=== PATIENT | male | born 1965 | race African-American/Black ===

== ENCOUNTER 2024-08-23 14:52 | Inpatient (IN) | payer OTHER ==
[2024-08-23 14:59] VITALS: BMI 28.1
[2024-08-23] MEDS ORDERED: dilTIAZem HCL 125 MG/25 ML - 25 ML VIAL ONE (15:27)
[2024-08-23] MEDS: dilTIAZem HCL 50 MG/10 ML - 10 ML VIAL IVPUSH ONE ×2 (15:30→15:46)
[2024-08-23] MEDS ORDERED: dilTIAZem HCL 60 MG TABLET ONE (15:40)
[2024-08-23] MEDS: dilTIAZem HCL 60 MG TABLET PO ONE (15:43)
[2024-08-23] MEDS: SODIUM CHLORIDE 0.9% 500 ML INFUS.BAG IV ONE (15:47)
[2024-08-23 15:58] LABS: POTASSIUM 4.2 mmol/L (3.5-5.1)
[2024-08-23 15:59] LABS: CALCIUM 9.8 mg/dL (8.5-10.1)
[2024-08-23 16:00] LABS: ALBUMIN 3.8 g/dl (3.4-5.0); BLOOD UREA NITROGEN 16.8 mg/dL (7-18); MAGNESIUM 2.3 mg/dL (1.8-2.4)
[2024-08-23 16:02] LABS: BASO % 0.7 % (0-2.0); EOS % 1.1 % (0-4.5); LYMPH % 37.1 % (8-40); MEAN PLT VOLUME 8.8 fl (7.5-11.1); MONO % 8.8 % (3.8-10.2); NEUT % 52.3 % (42.8-82.8); RBC 6.64 M/mm3 (4.00-5.60); WHITE BLOOD COUNT 10.3 K/mm3 (4.0-10.0)
[2024-08-23 16:03] LABS: CREATININE 1.2 mg/dL (0.55-1.3); HEMATOCRIT 48.4 % (35.4-49); HEMOGLOBIN 14.5 GM/dL (11.7-16.9); MEAN CELL VOLUME 73.8 fl (80-96)
[2024-08-23 16:04] LABS: MCH 22.1 pg (25.7-33.7); PLATELET COUNT 346 10^3/uL (134-434); RDW 15.7 % (11.9-15.9)
[2024-08-23 16:05] LABS: BILIRUBIN,TOTAL 0.6 mg/dL (0.2-1); TOT PROT 8.5 g/dl (6.4-8.2)
[2024-08-23] MEDS ORDERED: metoPROLOL SUCCINATE 25 MG TAB.SR.24H (FP) PO ONE (18:27)
[2024-08-23] MEDS: metoPROLOL SUCCINATE 25 MG TAB.SR.24H (FP) PO SCH (18:29)
[2024-08-23 18:52] LABS: INR 1.06 (0.83-1.09); PROTHROMBIN TIME (PATIENT) 12.2 SEC (9.7-13.0)
[2024-08-23] MEDS: ACETAMINOPHEN 500 MG TABLET (FP) PO ONE (21:29)
[2024-08-23] MEDS: SACUBITRIL/VALSARTAN 24 MG-26 MG TABLET PO SCH (21:29)
[2024-08-24 08:33] LABS: BASO % 0.6 % (0-2.0); EOS % 1.7 % (0-4.5); HEMATOCRIT 48.3 % (35.4-49); HEMOGLOBIN 14.7 GM/dL (11.7-16.9); LYMPH % 40.2 % (8-40); MCH 22.5 pg (25.7-33.7); MCHC 30.5 g/dl (32.0-35.9); MEAN CELL VOLUME 73.8 fl (80-96); MEAN PLT VOLUME 9.1 fl (7.5-11.1); MONO % 8.8 % (3.8-10.2); NEUT % 48.7 % (42.8-82.8); PLATELET COUNT 317 10^3/uL (134-434); RBC 6.54 M/mm3 (4.00-5.60); RDW 15.5 % (11.9-15.9); WHITE BLOOD COUNT 7.8 K/mm3 (4.0-10.0)
[2024-08-24] MEDS: metoPROLOL SUCCINATE 25 MG TAB.SR.24H (FP) PO SCH (08:55)
[2024-08-24] MEDS: FUROSEMIDE 40 MG/4 ML INJECTABLE VIAL IVPUSH SCH (08:55)
[2024-08-24 09:00] LABS: POTASSIUM 4.1 mmol/L (3.5-5.1)
[2024-08-24] MEDS: FLU VACCINE (FLULAVAL) PF 45 MCG/0.5 ML SYRINGE 2024-2025 IM ONE (09:07)
[2024-08-24 09:08] LABS: BLOOD UREA NITROGEN 14.3 mg/dL (7-18); CALCIUM 9.5 mg/dL (8.5-10.1)
[2024-08-24 09:11] LABS: CREATININE 0.9 mg/dL (0.55-1.3)
[2024-08-24] MEDS: APIXABAN 5 MG TABLET PO SCH (11:51)
[2024-08-24] MEDS: METOPROLOL TARTRATE 5 MG/5 ML VIAL IVPUSH PRN (18:07)
[2024-08-24] MEDS: METOPROLOL TARTRATE 50 MG TABLET (FP) PO SCH (21:28)
[2024-08-25 06:59] LABS: EOS % 1.3 % (0-4.5); HEMATOCRIT 50.7 % (35.4-49); HEMOGLOBIN 15.5 GM/dL (11.7-16.9); MCH 22.4 pg (25.7-33.7); MCHC 30.6 g/dl (32.0-35.9); MEAN CELL VOLUME 73.3 fl (80-96); MEAN PLT VOLUME 8.6 fl (7.5-11.1); MONO % 11.6 % (3.8-10.2); NEUT % 50.1 % (42.8-82.8); PLATELET COUNT 337 10^3/uL (134-434); RBC 6.92 M/mm3 (4.00-5.60); RDW 15.7 % (11.9-15.9); WHITE BLOOD COUNT 8.7 K/mm3 (4.0-10.0)
[2024-08-25 07:21] LABS: POTASSIUM 4.4 mmol/L (3.5-5.1)
[2024-08-25 07:29] LABS: ALBUMIN 3.2 g/dl (3.4-5.0); BLOOD UREA NITROGEN 23.3 mg/dL (7-18); CALCIUM 9.6 mg/dL (8.5-10.1); MAGNESIUM 2.3 mg/dL (1.8-2.4)
[2024-08-25 07:32] LABS: CREATININE 1.2 mg/dL (0.55-1.3)
[2024-08-25 07:33] LABS: BILIRUBIN,TOTAL 0.6 mg/dL (0.2-1); TOT PROT 7.4 g/dl (6.4-8.2)
[2024-08-25] MEDS: FUROSEMIDE 40 MG TABLET (FP) PO SCH (09:23)
[2024-08-25] MEDS: FUROSEMIDE 40 MG/4 ML INJECTABLE VIAL IVPUSH ONE (11:58)
[2024-08-25] MEDS: METOPROLOL TARTRATE 25 MG TABLET (FP) PO ONE (11:59)
[2024-08-25] MEDS: METOPROLOL TARTRATE 50 MG TABLET (FP) PO SCH (21:41)
[2024-08-26 07:34] LABS: BASO % 0.7 % (0-2.0); EOS % 1.3 % (0-4.5); HEMOGLOBIN 15.8 GM/dL (11.7-16.9); LYMPH % 39.6 % (8-40); MCHC 31.7 g/dl (32.0-35.9); MEAN CELL VOLUME 72.7 fl (80-96); MEAN PLT VOLUME 8.8 fl (7.5-11.1); MONO % 9.4 % (3.8-10.2); PLATELET COUNT 335 10^3/uL (134-434); RBC 6.88 M/mm3 (4.00-5.60); RDW 15.4 % (11.9-15.9)
[2024-08-26 07:50] LABS: POTASSIUM 4.4 mmol/L (3.5-5.1)
[2024-08-26 07:53] LABS: ALBUMIN 3.2 g/dl (3.4-5.0); BLOOD UREA NITROGEN 25.8 mg/dL (7-18); CALCIUM 9.3 mg/dL (8.5-10.1); MAGNESIUM 2.2 mg/dL (1.8-2.4)
[2024-08-26 07:57] LABS: CREATININE 1.2 mg/dL (0.55-1.3); PHOSPHOROUS 2.8 mg/dL (2.5-4.9)
[2024-08-26 07:58] LABS: BILIRUBIN,TOTAL 0.6 mg/dL (0.2-1); TOT PROT 7.2 g/dl (6.4-8.2)
[2024-08-26] MEDS: METOPROLOL TARTRATE 50 MG TABLET (FP) PO SCH (10:20)
[2024-08-26] MEDS: FUROSEMIDE 40 MG/4 ML INJECTABLE VIAL IVPUSH SCH (10:21)
[2024-08-26 15:11] VITALS: RESP 18
[2024-08-27 07:43] LABS: BASO % 0.6 % (0-2.0); EOS % 1.2 % (0-4.5); HEMATOCRIT 50.9 % (35.4-49); HEMOGLOBIN 15.6 GM/dL (11.7-16.9); LYMPH % 42.5 % (8-40); MCH 22.6 pg (25.7-33.7); MCHC 30.7 g/dl (32.0-35.9); MEAN CELL VOLUME 73.5 fl (80-96); MEAN PLT VOLUME 8.8 fl (7.5-11.1); MONO % 9.4 % (3.8-10.2); NEUT % 46.3 % (42.8-82.8); PLATELET COUNT 329 10^3/uL (134-434); RBC 6.93 M/mm3 (4.00-5.60); RDW 15.7 % (11.9-15.9)
[2024-08-27 08:02] LABS: POTASSIUM 4.4 mmol/L (3.5-5.1)
[2024-08-27 08:10] VITALS: PULSE 114
[2024-08-27 08:19] LABS: ALBUMIN 3.3 g/dl (3.4-5.0); BLOOD UREA NITROGEN 26.1 mg/dL (7-18); CALCIUM 9.6 mg/dL (8.5-10.1); MAGNESIUM 2.2 mg/dL (1.8-2.4)
[2024-08-27 08:22] LABS: CREATININE 1.2 mg/dL (0.55-1.3); PHOSPHOROUS 3.1 mg/dL (2.5-4.9)
[2024-08-27 08:24] LABS: BILIRUBIN,TOTAL 0.6 mg/dL (0.2-1); TOT PROT 7.2 g/dl (6.4-8.2)
[2024-08-27 09:38] VITALS: BP 124/80; TEMP 97.8
[2024-08-27] MEDS: METOPROLOL TARTRATE 50 MG TABLET (FP) PO ONE (17:03)
[2024-08-27] MEDS ORDERED: METOPROLOL TARTRATE 50 MG TABLET (FP) PO SCH (22:00)
== END 2024-08-27 17:20 | disposition home or self-care (01) | DRG 201 ==
LOC: JER 14:52 → JERBED 16:46 → J4W 19:00 → OBSVTOIN 08-24 09:14
PROVIDERS: ADMIT Internal Medicine; ATTEND Internal Medicine
DX: I48.91 Unspecified atrial fibrillation (principal); I50.21 Acute systolic (congestive) heart failure; I11.0 Hypertensive heart disease with heart failure; I42.6 Alcoholic cardiomyopathy; F10.20 Alcohol dependence, uncomplicated
CPT/HCPCS: 0241U-QW; 36415; 71045-TC-FY; 71250-TC; 80048; 80053; 83735; 83880; 84100; 84439; 84443; 84484; 85025; 85610; 85730; 90656; 93005; 93010; 93306-TC; 93308; 97116-GP; 97161-GP; 99285-25; G0008; G0378